=== PATIENT | female | born 1980 | race Two or more races ===

== ENCOUNTER 2022-09-15 08:53 | Inpatient (IN) | payer OTHER ==
[~2022-09-15] VITALS: Ht 154.9 cm; Wt 62.6 kg
[2022-09-21] MEDS ORDERED: Septra Ds Tablet PO (10:15)
[2022-09-21] MEDS ORDERED: AMOX-CLAV 875-1 EAC1 PO (10:15)
[2022-09-21] MEDS ORDERED: INTESTINEX680 M2 PO (10:16)
[2022-09-21] MEDS ORDERED: PANTOPRAZOLE SO40 MG PO (10:16)
[2022-09-21] MEDS ORDERED: PROPRANOLOL HCL10 MG PO (10:17)
[2022-09-21] MEDS ORDERED: BUTALB-ACETAMI1 EAC2 PO (10:17)
== END 2022-09-21 11:18 | disposition home or self-care (01) | DRG 690 ==
LOC: ER 08:53 → MEDI 18:49 → MEDJ 09-18 18:56
PROVIDERS: ADMIT Internal Medicine; ATTEND Internal Medicine
PROC: BW28ZZZ Computerized Tomography (CT Scan) of Head (ICD-10-PCS; principal; 2022-09-16)
PROC: BW38ZZZ Magnetic Resonance Imaging (MRI) of Head (ICD-10-PCS; 2022-09-19)
DX: N39.0 Urinary tract infection, site not specified (principal); N61.1 Abscess of the breast and nipple; N12 Tubulo-interstitial nephritis, not specified as acute or chronic; N13.30 Unspecified hydronephrosis; G43.909 Migraine, unspecified, not intractable, without status migrainosus; N28.1 Cyst of kidney, acquired
CPT/HCPCS: 70544

== ENCOUNTER 2023-05-09 07:22 | Emergency (ER) | payer OTHER ==
[~2023-05-09] VITALS: Ht 154.9 cm; Wt 60.8 kg
[~2023-05-09 07:22] MED LIST: AMOX-CLAV 875-1 EAC1 PO; BUTALB-ACETAMI1 EAC2 PO; INTESTINEX680 M2 PO; PANTOPRAZOLE SO40 MG PO; PROPRANOLOL HCL10 MG PO; Septra Ds Tablet PO
[2023-05-09] MEDS ORDERED: 0.9 % SODIUM CHLORIDE 1,000 ML IV STA (08:21)
[2023-05-09 08:52] LABS: HEMATOCRIT 42.5 % (36.0-45.00); HEMOGLOBIN 14.5 g/dL (12.0-15.00); MEAN CELL VOLUME 84.6 fL (80.00-100.00); MEAN CORPUSCULAR HEMOGLOBIN 28.9 pg (27.00-32.0); MEAN CORPUSCULAR HGB CONC 34.2 g/dl (32.0-36.0); PLATELET COUNT 373 K/uL (150-450); RED BLOOD COUNT 5.02 M/uL (4.00-6.00); RED CELL DISTRIBUTION WIDTH 14.1 % (11.5-14.5)
[2023-05-09 09:44] LABS: CALCIUM 9.5 mg/dL (8.5-10.1); CREATININE SERUM 0.77 mg/dL (0.55-1.02); GFR 82.21; POTASSIUM 3.56 mEq/L (3.5-5.1)
[2023-05-09 09:46] LABS: PH,URINE 5.5 (5.0-8.0); URINE APPEARANCE Clear; URINE BILIRRUBIN Negative (NEGATIVE); URINE BLOOD Negative; URINE COLOR Dark Yellow; URINE GLUCOSE Negative (NEGATIVE); URINE LEUKOCYTE Small; URINE NITRATE Negative; URINE PROTEIN Trace (NEGATIVE); URINE UROBILINOGEN 0.2 E.U./dl
[2023-05-09 09:50] LABS: URINE BACTERIA 500.1 uL (0.0-1933); URINE EPITHELIAL CELLS 9.4 uL (0.0-38.8); URINE RBC 4.7 uL (0.0-20.8); URINE WBC 13.2 uL (0.0-23.2)
[2023-05-09] MEDS ORDERED: CIPROFLOXACIN IN 5 % DEXTROSE 400 MG/200 ML PIGGYBAG IV ONE (11:30)
[2023-05-09] MEDS ORDERED: METRONIDAZOLE/SODIUM CHLORIDE 500 MG/100 ML PIGGYBACK IV ONE (11:30)
== END 2023-05-09 13:07 | disposition home or self-care (01) ==
LOC: ER 07:22
PROVIDERS: Emergency Medicine
DX: K52.89 Other specified noninfective gastroenteritis and colitis (principal); R10.9 Unspecified abdominal pain